=== PATIENT | female | born 1980 | race Caucasian/White ===

== ENCOUNTER 2018-06-20 12:09 | Observation (INO) | payer OTHER, SELFPAY ==
[2018-06-20] VITALS (17 sets, daily range): BP systolic 89–128; BP diastolic 59–85; PULSE 60–86; RESP 14–18; TEMP 36.3–37.2; O2SAT 93–100; BMI 25.7
[2018-06-20] MEDS: Lubricating Jelly 60 GM Tube 30 GM TOPICAL (09:56)
[2018-06-20] MEDS: Cefazolin 2 GM in 0.9% Normal Saline 100 ML IV (10:13)
[2018-06-20] MEDS: Methylene Blue 1% 100 MG/10 ML VIAL (11:15)
[2018-06-20] MEDS: Estrogens,Conj. 1 Tube 1 DOSE (11:43)
--- NOTE | 2018-06-20 12:22 | DCINST_ITS ---
Discharge Diet: No Restrictions Discharge Activity: May Not Drive - for 2 weeks, May not drive while taking narcotic pain medications., May Shower, - - no tub bathing, no swimming, no intercourse, no exercising, no strenuous activity, no lifting over 5 pounds. May resume sexual activity in: 8 weeks Lifting Restrictions: nothing over 5 pounds Call your doctor if your incision/area has: Continuous Slow Oozing, Sudden Increased Bleeding Call your doctor if you observe: Fever of 101 or Higher, Inability to urinate, Inability to have a bowel movement, Shortness of breath, Dizziness, Fainting spells, Chest pain, Calf discomfort, Uncontrolled pain Allergies/Adverse Reactions: Allergies No Known Allergies Allergy (Verified 06/14/18 08:19) Medications to take at Discharge Clonazepam [Klonopin] 1 mg PO BID PRN PRN 10/01/16 Dextroamphetamine/Amphetamine [Adderall Xr 20 mg Capsule] 10 mg PO PRN PRN 10/01/16 Duloxetine Hcl [Cymbalta] 60 mg PO DAILY 10/01/16 Albuterol IH (ProAir) [Proair Hfa] 1 - 2 puff INHALATION Q6H PRN PRN 06/14/18 Cholecalciferol (Vitamin D3) [Vitamin D3] 2,000 unit PO DAILY 06/14/18 Lisdexamfetamine Dimesylate [Vyvanse] 50 mg PO DAILY 06/14/18 Multivitamin [Multiple Vitamins] 1 each PO DAILY 06/14/18 Cephalexin [Keflex] 500 mg PO Q12 3 Days #6 cap 06/20/18 Ondansetron [Zofran] 8 mg PO Q8H PRN PRN 7 Days #20 tab 06/20/18 Oxycodone HCl/Acetaminophen [Percocet 5/325] 1 - 2 tab PO Q6H PRN PRN 7 Days #30 tab 06/20/18 Phenazopyridine HCl [Pyridium] 200 mg PO TID PRN PRN 7 Days #30 tab 06/20/18 The following prescriptions were given: Oxycodone HCl/Acetaminophen [Percocet 5/325] 1 - 2 tab PO Q6H PRN PRN 7 Days #30 tab PRN Reason: Pain Ondansetron [Zofran] 8 mg PO Q8H PRN PRN 7 Days #20 tab PRN Reason: Nausea Cephalexin [Keflex] 500 mg PO Q12 3 Days #6 cap Phenazopyridine HCl [Pyridium] 200 mg PO TID PRN PRN 7 Days #30 tab PRN Reason: Bladder Spasms Primary Care Physician: Karissa Ross,Out of [Primary Care Provider] - Test Results: Test results from this visit will be discussed in further detail at your follow- up appointment, if applicable. Please Follow Up With: Safia Pacheco MD When: call for appt in 2 weeks Proposed Discharge Date: 06/21/18
--- NOTE | 2018-06-20 12:22 | PCM.IMDPSTOP ---
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 Post-Operative Diagnosis: same Surgery/Procedure Performed:: rectocele repair, perineoplasty, midurethral sling insertion, cystoscopy Description of Surgical Findings:: rectocele repair without complication. Very weak tissue at the perineal body. sling flat and good position. tsai left indwelling, vagina packed. Estimated Blood Loss: 75cc Specimen's removed: none Type of Anesthesia:: General Special Medications: ancef - Admit VTE Documentation VTE Present on Admission: Yes VTE Mechan Device Prophylaxis: SCD's VTE Pharm Prophylaxis ordered?: No Reason prophylaxis not ordered:: Treatment Not Indicated
--- NOTE | 2018-06-20 12:25 | OP.PN_ITS ---
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 Post-Operative Diagnosis: same Surgery/Procedure Performed:: rectocele repair, perineoplasty, midurethral sling insertion, cystoscopy Description of Surgical Findings:: rectocele repair without complication. Very weak tissue at the perineal body. sling flat and good position. tsai left indwelling, vagina packed. Estimated Blood Loss: 75cc Specimen's removed: none Type of Anesthesia:: General Special Medications: ancef - Admit VTE Documentation VTE Present on Admission: Yes VTE Mechan Device Prophylaxis: SCD's VTE Pharm Prophylaxis ordered?: No Reason prophylaxis not ordered:: Treatment Not Indicated
[2018-06-20] MEDS: HYDROcodone Bitartrate/Apap 5/325 Tablet PO ×2 (13:21→19:03)
[2018-06-20] MEDS: Morphine 2 MG/ML Syringe IV ×3 (15:38→22:18)
[2018-06-20] MEDS: Cefazolin 1 GM/50 ML BAG IV (17:32)
[2018-06-20] MEDS: clonazePAM 1 MG Tablet PO (19:06)
[2018-06-20] MEDS: Lactated Ringers 1,000 ML 100 ML IV (21:39)
[2018-06-20] MEDS: Docusate Sodium 100 MG Capsule PO (22:18)
[2018-06-20] MEDS: 0.9% NaCl Peripheral Flush Adult/Peds IV (22:19)
[2018-06-21] MEDS: Cefazolin 1 GM/50 ML BAG IV (01:26)
[2018-06-21] MEDS: HYDROcodone Bitartrate/Apap 5/325 Tablet PO ×3 (01:29→15:29)
[2018-06-21 04:20] VITALS: BP 108/68; PULSE 72; RESP 16; TEMP 36.6; O2SAT 96
[2018-06-21] MEDS: 0.9% NaCl Peripheral Flush Adult/Peds IV ×2 (05:34→11:42)
[2018-06-21] MEDS: Morphine 2 MG/ML Syringe IV ×2 (05:34→11:42)
[2018-06-21] MEDS: Enoxaparin 40 MG/0.4 ML Syringe SC (05:39)
[2018-06-21 07:42] VITALS: O2SAT 96
[2018-06-21 09:32] VITALS: BP 108/59; PULSE 83; RESP 16; TEMP 37.1; O2SAT 99
[2018-06-21] MEDS: Docusate Sodium 100 MG Capsule PO (09:38)
[2018-06-21] MEDS: DULoxetine Hcl 30 MG Capsule 60 MG PO (09:38)
[2018-06-21 15:32] VITALS: BP 101/70; PULSE 69; RESP 18; TEMP 36.8; O2SAT 99
--- NOTE | 2018-06-27 12:02 | PCM.OPRPT ---
Problem List (1) Rectocele Status: Acute (2) MAY (stress urinary incontinence, female) Status: Acute (3) Urethral hypermobility Status: Acute Report of Operation Date of Procedure: 06/20/18 Pre-Operative Diagnosis: Rectocele, stress urinary incontinence. Post-Operative Diagnosis: same Surgery/Procedure Performed:: rectocele repair, perineoplasty, midurethral sling insertion, cystoscopy Description of Surgical Findings:: rectocele repair without complication. Very weak tissue at the perineal body. sling flat and good position. tsai left indwelling, vagina packed. 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 She is a significant runner and also complains of severe urinary incontinence with activity. After reviewing her history and urodynamics, the risks benefits and alternatives, the patient agreed to proceed with surgical intervention. The patient was taken to the operating room and placed on the operating room table. Anesthesia monitored the head, neck, airway, IV access, vital signs throughout the case. Once anesthesia was apparently administered the patient was placed into exaggerated dorsal lithotomy internal. She was prepped and draped in usual sterile fashion. At this time a 16 [place] Tsai catheter was used to drain her urinary bladder. Attention was then turned towards the posterior vaginal wall and at the perineal body or lack thereof, lidocaine with epinephrine was injected in a subcutaneous fashion for hemostatic control and hydrostatic dissection. Both sharp and blunt dissection ensued following an incision in the posterior vaginal wall at the area of the perineum. The dissection continued until bilaterally the rectal vaginal fascia was identified. Dissection continued all the way to the apex of the defect. These most significant defect was a lack of perineal body. A perineoplasty was performed providing increased support for her rectocele repair. The rectovaginal fascia was then plicated and brought together in interrupted fashion with 2-0 Vicryl sutures. The vaginal mucosa was then closed with running interlocking 2-0 Vicryl. Care was taken to avoid entry into the bowel. Following closure of the rectocele attention was then turned towards the mid urethra which was injected submucosally for hydrostatic dissection and hemostatic control. A midline vertical 1.5 cm incision was made in both sharp and blunt dissection ensued until the periurethral space was opened bilaterally. Using the alters trochars first the right side than the left tines were passed into the obturator complexes in appropriate fashion. The sling was flattened over the area of the urethra and laterally as much as possible. It laid flat against the urethra without tension. The midline incision was then closed using running interlocking 2-0 Vicryl. The Tsai catheter was removed and a cystoscopic evaluation ensued. The patient had been given intravenous methylene blue and bilaterally blue ureteral jets were observed. There is no entry into the urinary bladder or the urethra with any foreign material including suture or mesh. This time the patient's bladder was emptied and the Tsai catheter was replaced. The vagina was then packed using Premarin cream and vaginal packing. The patient was awakened and taken to the recovery room in good condition. Grafts/Implants Used: Altis midurethral sling - Complications none - Admit VTE Documentation VTE Present on Admission: Yes VTE Mechan Device Prophylaxis: SCD's VTE Pharm Prophylaxis ordered?: No Reason prophylaxis not ordered:: Treatment Not Indicated
== END 2018-06-21 18:13 | disposition home or self-care (01) ==
LOC: SDC 13:05
PROVIDERS: Admitting Provider Urology; Referring Provider Urology; Visit Provider Urology
PROC: (CPT 57260; principal; 2018-06-20 10:30)
DX: N39.3 Stress incontinence (female) (male) (principal); N81.6 Rectocele; N36.41 Hypermobility of urethra; F41.9 Anxiety disorder, unspecified; F32.9 Major depressive disorder, single episode, unspecified; K21.9 Gastro-esophageal reflux disease without esophagitis; Z79.899 Other long term (current) drug therapy; Z87.891 Personal history of nicotine dependence
CPT/HCPCS: 00860; 57250; 57288; 96361; 96365; 96366; 96372; 96375; 96376; 99218; 99251; J7030; J7120; A4216; G0378; G0379; G0463; J2405